=== PATIENT | male | born 1950 | race Caucasian/White ===

== ENCOUNTER → 2020-10-24 09:15 | Outpatient (CLI) | payer OTHER, SELFPAY ==
--- NOTE | ~2020-10-24 | XR_ITS ---
EXAMINATION: XR toe 1st RT min 2V DATE: 10/24/2020 09:53 INDICATION: Right foot pain at the great toe TECHNIQUE: Dorsal plantar, lateral and oblique views of the right great toe were obtained. COMPARISON: None FINDINGS: Mild hallux valgus with severe osteoarthritis at the first metatarsophalangeal joint. Mild to moderat e osteoarthritis at the first interphalangeal joint and mild osteoarthritis at the remaining visualiz ed interphalangeal joints of the second-fourth toes. No erosions to suggest inflammatory arthritis. N o fracture. 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 Reviewed, dictated and finalized at location A. CTOR OF PROGRAM MANAGEMENT
--- NOTE | ~2020-10-24 | XR_ITS ---
EXAMINATION: XR hand LT 2V, XR hand RT 2V DATE: 10/24/2020 09:53 INDICATION: Bilateral hand pain TECHNIQUE: 1. Posteroanterior and lateral views of the right hand were obtained. 2. Posteroanterior and lateral views of the left hand were obtained. COMPARISON: None. FINDINGS: Alignment is normal at both hands. No fractures. Relatively symmetric pattern of polyarticular osteoa rthritis at the bilateral hands, moderate severity at the bilateral first-third metacarpophalangeal a nd a few bilateral distal interphalangeal joints and mild at the bilateral distal radioulnar, triscap he, first carpometacarpal and many of the remaining metacarpophalangeal and interphalangeal joints. M ild scattered chondrocalcinosis in both hands. No erosions to suggest an inflammatory arthritis. IMPRESSION: 1. Relatively symmetric mild to moderate polyarticular osteoarthritis in both hands. The presence of chondrocalcinosis as well as disproportionate severity at the second and third metacarpophalangeal smitha ints raises the possibility of secondary osteoarthritis related to calcium pyrophosphate deposition ( CPPD) disease. Reviewed, dictated and finalized at location A. CLEANING MACHINE TENDER IMPRESSION: 1. Relatively symmetric mild to moderate polyarticular osteoarthritis in both h ands. The presence of chondrocalcinosis as well as disproportionate severity at the second and third metacarpophalangeal joints raises the possibility of seco ndary osteoarthritis related to calcium pyrophosphate deposition (CPPD) disease .
== END ==
PROVIDERS: Visit Provider Nurse Practitioner Family
DX: M19.071 Primary osteoarthritis, right ankle and foot (principal); M19.041 Primary osteoarthritis, right hand; M19.042 Primary osteoarthritis, left hand
CPT/HCPCS: 73120; 73660

== ENCOUNTER 2020-10-24 14:25 | Outpatient (CLI) | payer OTHER, SELFPAY ==
--- NOTE | ~2020-10-24 | CT_ITS ---
EXAMINATION:CT lung screening DATE: 10/24/2020 15:08 INDICATION: Personal history of tobacco dependence. Current smoker with 30 pack year history. TECHNIQUE: Computed tomography (CT) of the chest was performed without intravenous contrast. Automate d exposure control and iterative reconstruction technique were employed. The dose-length product (DLP ) was 118.12 mGy-cm. COMPARISON: None. FINDINGS: There is mild scarring at the lung apices. There is mild emphysema. There is mild atelectas is bilaterally. A calcified right lung nodule and calcified right hilar lymph nodes are consistent wi th old granulomatous disease. No pleural effusion. The heart size is normal. No pericardial effusion. Partially visualized is a 3.2 cm cyst in left kidney. There is mild thoracic spondylosis. There are a few benign bone islands in the spine. IMPRESSION: 1. Lung-RADS category 2: Benign appearance or behavior. Continue annual screening with noncontrast lo w-dose chest CT in 12 months. Reviewed, dictated and finalized at location B. CULTURAL ADVISER IMPRESSION: 1. Lung-RADS category 2: Benign appearance or behavior. Continue annual screeni ng with noncontrast low-dose chest CT in 12 months.
== END 2020-10-24 14:26 | disposition home or self-care (01) ==
DX: F17.210 Nicotine dependence, cigarettes, uncomplicated (principal)
CPT/HCPCS: 71271

== ENCOUNTER → 2021-04-12 07:43 | Outpatient (CLI) | payer OTHER, SELFPAY ==
--- NOTE | ~2021-04-12 | US_ITS ---
EXAMINATION: US abdomen complete EXAM DATE: 04/12/2021 08:31 INDICATION: Chronic hepatitis C without hepatic coma. TECHNIQUE: Multiple grayscale and Doppler images of the complete abdomen were obtained (by a technolo deanna who performed the scan) and subsequently reviewed. There is no prior study for comparison. FINDINGS: The abdominal aorta is normal in caliber. Visualized portion IVC is patent. The pancreatic head a nd body are normal in appearance. The pancreatic tail is not visualized. The liver has normal echogenicity and contour. There is a 1 cm right liver lobe cyst inferiorly. Th ere is no evidence of intrahepatic biliary duct dilation. Portal venous flow was seen in the hepatop edal, normal direction and has normal Doppler waveform. Common bile duct measures 3 mm, which is normal. The gallbladder wall is normal in thickness, with ex pected amount of distention. No sonographic evidence of pericholecystic fluid. There is no cholelit hiases. Technologist performing exam reports patient did not demonstrate sonographic Sparrow's sign. Please note that this sign is less reliable in patients who have received pain medication. Right kidney: There is normal contour and echogenicity. It measures 9.7 x 4.8 x 5.7 centimeters. T here are no focal renal lesions identified. There is no hydronephrosis. Left kidney: There is normal contour and echogenicity. It measures 12.0 x 5.4 x 4.8 centimeters. Th ere is a 4.6 cm renal cyst at the inferior pole. There is no hydronephrosis. The spleen measures 14.0 x 5.3 centimeters, is mildly enlarged but otherwise morphologically normal. IMPRESSION: Mild splenomegaly. Reviewed, dictated and finalized at location B. IMPRESSION: Mild splenomegaly.
== END ==
PROVIDERS: PCP Internal Medicine; Visit Provider Internal Medicine
DX: B18.2 Chronic viral hepatitis C (principal)
CPT/HCPCS: 76700

== ENCOUNTER 2021-08-18 16:52 | Emergency (ER) | payer OTHER, SELFPAY ==
--- NOTE | ~2021-08-18 | XR_ITS ---
EXAMINATION: XR chest 2V DATE: 08/18/2021 17:32 INDICATION: Heart palpitations TECHNIQUE: PA and lateral views of the chest are obtained. COMPARISON: 10/07/2017 FINDINGS: The lungs are free of acute opacities. There is no pleural effusion or pneumothorax. The ca rdiomediastinal silhouette is normal. There is mild thoracic spondylosis. IMPRESSION: 1. No acute cardiopulmonary abnormality. Reviewed, dictated and finalized at location A. WEAVER
[2021-08-18 17:02] VITALS: BP 151/81; PULSE 65; RESP 20; TEMP 36.4; O2SAT 99
--- NOTE | 2021-08-18 17:09 | ECG_ITS ---
Measurements Intervals [place] Rate: 60 P: 68 OR: 153 QRS: -37 QRSD: 96 T: 62 QT: 402 QTc: 405 Interpretive Statements SINUS RHYTHM LEFT AXIS DEVIATION INCOMPLETE RIGHT BUNDLE BRANCH BLOCK BORDERLINE R WAVE PROGRESSION, ANTERIOR LEADS BASELINE WANDER- V2-V6 BORDERLINE ECG Electronically Signed On 08-19-2021 7:11:38 ALMOND BLANCHER HAND by Titus Vasques D.O.
[2021-08-18 17:16] VITALS: BP 140/88; PULSE 65; RESP 15; O2SAT 99
--- NOTE | 2021-08-18 17:18 | ED.ARRPALP ---
HPI - Arrhythmia/Palpitations General Chief Complaint: Arrhythmia/Palpitations Stated Complaint: irregular heartbeat Time Seen by Provider: 08/18/21 17:00 Source: patient History of Present Illness HPI narrative: Patient presents with concern for reaction to trazodone. Reports his primary care doctor started on trazodone for his insomnia. His first dose was last night. Reports after taking the medication he felt like his heart was racing and he felt off or still was not able to fall asleep until 3 AM. Today continue to feel groggy and also reported a rainbow flash of light in his left visual field that lasted approximately 30 minutes to an hour he also had associated palpitations without episode. Ports on arrival to the ER his symptoms have completely resolved and he feels back to his usual health. He denies current chest pain, palpitations, shortness of breath, dizziness, lightheadedness. Denies recent fevers, cough, congestion, chills. Related Data Allergies Allergy/AdvReac Type Severity Reaction Status Date / Time trazodone AdvReac Palpitation Verified 08/18/21 17:11 s Review of Systems Review of Systems: CONSTITUTIONAL: Denies fever, chills, or sweats. EYES: Denies visual changes, redness, or discharge. ENT: Denies rhinorrhea, congestion, sore throat, or otalgia. CARDIOVASCULAR: Denies chest pain, palpitations, or edema. RESPIRATORY: Denies cough or dyspnea. GASTROINTESTINAL: Denies abdominal pain, nausea, vomiting, or diarrhea. GENITOURINARY: Denies dysuria or hematuria. SKIN: Denies rash or itching. MUSCULOSKELETAL: Denies back pain, joint pain, or myalgia. NEUROLOGIC: Denies headache, numbness, dizziness, or weakness. PSYCHIATRIC: Denies anxiety or depression. All systems reviewed & are unremarkable except as noted in HPI and below PMFSH Past Medical History Medical History (Updated 08/18/21 @ 17:24 by Adrián Christian MD) Insomnia Social History Social History (Updated 08/18/21 @ 17:20 by Adrián Christian MD) Smoking status: Never smoker Alcohol intake: never Substance use: never Exam Narrative: GENERAL: Well-appearing, well-nourished, and in no acute distress. HEAD: Normocephalic, atraumatic. EYES: PERRLA and EOMI. ENT: Nares clear, no rhinorrhea or epistaxis. Mucous membranes moist. NECK: Supple. No masses. No JVD CHEST: Clear to auscultation. No respiratory distress. No wheezes rales or rhonchi HEART: Regular rate and rhythm. No murmur heard. Normal peripheral pulses. ABDOMEN: Soft, nontender, nondistended, normal active bowel sounds. EXTREMITIES: Normal range of motion. No edema. SKIN: Warm, dry, no rash. NEURO: No focal deficits. Alert and oriented x3. PSYCH: Normal mood and affect. Course Reevaluation(s) Reevaluation #1: Patient continues to be asymptomatic. Work-up reviewed with patient. Patient is comfortable with the outpatient plan. Date: 08/18/21 Time: 18:03 Vital Signs Vital signs: Vital Signs Temperature 36.4 C 08/18/21 17:02 Pulse Rate 65 08/18/21 17:02 Respiratory Rate 20 08/18/21 17:02 Blood Pressure 151/81 H 08/18/21 17:02 Pulse Oximetry 99 08/18/21 17:02 Temperature 36.4 C 08/18/21 17:02 Pulse Rate 65 08/18/21 17:02 Respiratory Rate 20 08/18/21 17:02 Blood Pressure 151/81 H 08/18/21 17:02 Pulse Oximetry 99 08/18/21 17:02 MDM - Arrhythmia/Palpitations MDM Narrative Medical decision making narrative: H&P as above, vss, pt looks clinically well, exam reassuring, labs clinically unremarkable, img clinically unremarkable, additional labs/img considered, symptomatic relief available as needed, on reevaluation pt continues to looks clinically well. Suspect medication reaction, dns significant arrhythmia, ACS, PE, dissection, CVA. plan to tx/monitor as op w/ pcm f/u findings/plan discussed with pt, pt agree/comfortable with plan, return precautions given Lab Data Result diagrams: 08/18/21 17:09 08/18/21 17:10
[2021-08-18 17:27] LABS: Basophils Percent Auto 0.5 % (0.2-1.2); Eosinophils Absolute Auto 0.1 K/mm3 (0-0.3); Immature Granulocyte Absolute 0.04 K/mm3 (0.00-0.031); Immature Granulocyte Percent A 0.5 % (0-0.5); Lymphocytes Absolute Auto 2.85 K/mm3 (0.9-3.2); Lymphocytes Percent Auto 35.1 % (18.3-44.2); Mean Corpuscular HGB Conc 35.6 g/dl (32-36); Mean Corpuscular Hemoglobin 31.8 pg (26-34); Mean Corpuscular Volume 89.5 fl (80-100); Mean Platelet Volume 9.9 fl (7.4-10.4); Monocytes Absolute Auto 0.5 K/mm3 (0.1-0.6); Neutrophils Absolute Auto 4.6 K/mm3 (1.3-6.7); Neutrophils Percent Auto 56.9 % (45.5-73.1); Platelet Count Result 129 k/mm3 (150-375); Red Blood Count 5.03 M/mm3 (4.6-6.20); Red Cell Distribution Width 13.1 % (11.5-14.5); White Blood Count 8.1 K/mm3 (4.5-10.0)
[2021-08-18 17:31] LABS: Alanine Aminotransferase 38 U/L (4-50); Albumin Level 4.3 g/dL (3.5-5.1); Alkaline Phosphatase 72 U/L (38-126); Anion Gap 10 mmol/L (8-16); Aspartate Amino Transferase 32 U/L (17-59); Bilirubin,Total 0.8 mg/dL (0.2-1.3); Blood Urea Nitrogen 11 mg/dL (9-20); Calcium 9.4 mg/dL (8.4-10.2); Carbon Dioxide 20 mmol/L (22-30); Chloride 108 mmol/L (98-107); Estimated CRCL calculation 74 ml/min; Estimated Glomerular Filt Rate > 60; Glucose 109 mg/dL (65-110); Lipase 211 U/L (23-300); Potassium 4.3 mmol/L (3.4-5.0); Sodium 138 mmol/L (137-145)
[2021-08-18 18:00] VITALS: BP 128/84; PULSE 67; RESP 21; O2SAT 96
[2021-08-18 18:15] VITALS: BP 128/84; PULSE 67; RESP 21; O2SAT 96
== END 2021-08-18 18:15 | disposition home or self-care (01) ==
PROVIDERS: Emergency Provider Emergency Medicine; PCP Internal Medicine
DX: R00.2 Palpitations (principal); R44.1 Visual hallucinations; G47.00 Insomnia, unspecified
CPT/HCPCS: 36415; 71046; 80053; 83690; 84443; 85025; 85055; 93005; 99283

== ENCOUNTER 2023-01-16 10:45 | Outpatient (CLI) | payer OTHER, SELFPAY ==
--- NOTE | ~2023-01-16 | CT_ITS ---
EXAMINATION: CT lung screening DATE: 01/16/2023 11:22 INDICATION: History of nicotine dependence. TECHNIQUE: Computed tomography (CT) of the chest was performed without intravenous contrast. The dose -length product was 135.74 mGy-cm. Automated exposure control and iterative reconstruction technique were employed. COMPARISON: CT dated 10/24/2020 FINDINGS: Mild emphysema. No endobronchial lesions. No significant pleural or pericardial effusion. N o pulmonary nodules or masses. No pneumothorax. There is evidence for chronic granulomatous disease. No thoracic lymphadenopathy. There is a left renal cyst, partially visualized. IMPRESSION: 1. Lung-RADS category 1: Negative. Continue annual screening with noncontrast low-dose chest CT in 12 months. Reviewed, dictated and finalized at location L. IMPRESSION: 1. Lung-RADS category 1: Negative. Continue annual screening with noncontrast l ow-dose chest CT in 12 months.
== END 2023-01-16 10:46 | disposition home or self-care (01) ==
PROVIDERS: PCP Internal Medicine; Visit Provider Internal Medicine
DX: Z12.2 Encounter for screening for malignant neoplasm of respiratory organs (principal); Z87.891 Personal history of nicotine dependence
CPT/HCPCS: 71271

== ENCOUNTER 2023-09-07 14:34 | Emergency (ER) | payer OTHER, SELFPAY ==
--- NOTE | ~2023-09-07 | XR_ITS ---
XR finger 2nd LT min 2V 09/07/2023 15:07 Indication: Left second finger pain after injury Procedure: 4 views left second finger Comparison: 10/24/2020 Findings: There is a possible nondisplaced tuft fracture of the left second distal phalanx. Osteopeni a. Large amount of soft tissue swelling. No foreign bodies. Impression: 1: Possible nondisplaced tuft fracture left second distal phalanx. Reviewed, dictated and finalized at location A. CAMERA OPERATOR Impression: 1: Possible nondisplaced tuft fracture left second distal phalanx.
[2023-09-07 14:45] VITALS: BP 149/79; PULSE 63; RESP 16; TEMP 36.2; O2SAT 99
--- NOTE | 2023-09-07 15:18 | ED.WOUNDLAC ---
HPI - Wound/Laceration General Chief Complaint: Wound/Laceration Stated Complaint: laceration to left index finger Time Seen by Provider: 09/07/23 15:13 Source: patient Mode of arrival: ambulatory Limitations: no limitations History of Present Illness HPI narrative: Luis is a 73-year-old male patient presenting to the ER today for a wound/laceration to his left index finger. He reports that he injured it on a grinding wheel approximately 1 hour prior to coming into the ER. Bleeding is controlled. Tetanus is up-to-date within the last 5 years per patient. Related Data Allergies Allergy/AdvReac Type Severity Reaction Status Date / Time NSAIDS (Non-Steroidal AdvReac Abdominal Verified 09/07/23 15:53 Anti-Inflamma Pain trazodone AdvReac Palpitation Verified 09/07/23 15:53 s Review of Systems Review of Systems: Pertinent positives per HPI. Patient denies any fever, chills, rash, headache, visual changes, dizziness, cough, runny nose, sore throat, shortness of breath, chest pain, palpitations, nausea, vomiting, diarrhea, constipation, abdominal pain, or any urinary issues. [facility] Past Medical History Medical History Insomnia Social History Social History Smoking status: Never smoker Alcohol intake: never Substance use: never Comments At the time of my signature, I reviewed and agree with the nursing past medical, surgical, social, and family history. There is no relevant family history pertinent to the patient complaint. Exam Narrative: General: Well-developed, well nourished, in no apparent distress Head: Normocephalic, atraumatic. Cardio: Regular rate and rhythm, s1 and s2 normal, no murmur appreciated. Resp: Clear to auscultation bilaterally, no rhonchi, rales, wheezing or rubs. Musculoskeletal: No deformity, abrasion/laceration to the left volar index finger measuring approximately 3 cm, tender to palpation over the distal and middle phalanx, tissue loss noted over the middle phalanx, able to flex and extend his finger against resistance, grossly normal range of motion, muscle strength strong and equal, peripheral pulse strong, no edema, no cyanosis, normal gait and station Course Course Emergency Course: Portions of this record may have been created with voice recognition software. Vital Signs Vital signs: Vital Signs Temperature 36.2 C L 09/07/23 14:45 Pulse Rate 63 09/07/23 14:45 Respiratory Rate 16 09/07/23 14:45 Blood Pressure 149/79 H 09/07/23 14:45 Pulse Oximetry 99 09/07/23 14:45 Oxygen Delivery Room Air 09/07/23 14:45 Temperature 36.2 C L 09/07/23 14:45 Pulse Rate 63 09/07/23 14:45 Respiratory Rate 16 09/07/23 14:45 Blood Pressure 149/79 H 09/07/23 14:45 Pulse Oximetry 99 09/07/23 14:45 Oxygen Delivery Room Air 09/07/23 14:45 Vital signs reviewed Procedures Laceration Laceration 1: Date: 09/07/23 Site: hand (left index finger) Size (cm): 3 Description: linear, flap, irregular and contaminated Depth: simple, single layer Local Anesthetic: lidocaine 1% Amount of anesthesia used (mL): 6 Pre-repair: wound explored, irrigated and irrigated extensively ====== Skin Level ====== Skin layer closed with: nylon Size (cm): 5-0 Number of sutures: 5 Technique: simple, interrupted ====== Subcutaneous Layer ====== ====== Muscle Layer ====== ====== Tendon Layer ====== Dressing: Verbal consent obtained for laceration repair. Risk and benefits explained and patient voiced understanding. Area was cleansed with normal saline and Betadine and a 27 gauge needle was then used to instill (6) ml of 1% lidocaine without epi into the proximal finger creating a digital block. Area was prepped and draped using sterile technique.
== END 2023-09-07 17:00 | disposition home or self-care (01) ==
PROVIDERS: Emergency Provider Nurse Practitioner Family; PCP Internal Medicine
DX: S62.661B Nondisplaced fracture of distal phalanx of left index finger, initial encounter for open fracture (principal); W29.8XXA Contact with other powered hand tools and household machinery, initial encounter
CPT/HCPCS: 12002; 29130; 73140; 99283; 99284